=== PATIENT | female | born 1970 | race Caucasian/White ===

== ENCOUNTER 2018-12-27 23:57 | Emergency (ER) | payer OTHER ==
[2018-12-28] MEDS: ONDANSETRON 4 MG INJ IV (03:12)
[2018-12-28] MEDS: SOD CHLORIDE 0.9% 1,000 ML IV (03:12)
[2018-12-28] MEDS: KETOROLAC 30 MG INJ IV (03:12)
[2018-12-28] MEDS: PROCHLORPERAZINE 10 MG INJ IV (03:28)
== END 2018-12-28 04:28 | disposition home or self-care (01) ==
LOC: FTE 23:57
DX: G44.89 Other headache syndrome (principal); Z85.42 Personal history of malignant neoplasm of other parts of uterus
CPT/HCPCS: 96374; 96375; 99284-25